=== PATIENT | female | born 1980 | race Caucasian/White ===

== ENCOUNTER → 2016-09-21 | Outpatient (CLI) | payer OTHER ==
[~2016-09-21] MED LIST: ACET500C PO; CALCTAB97 PO; CENTTAB47 PO; CYCL10TA PO; DRIS50002 PO; GABA-279 PO; IRON325T PO; LYRI75CA PO; MELO7.5T6 PO; METF1000 PO; MOBI15TA PO; NEUR300C PO; PERC5TAB6 PO; PREG50CA PO; PROT20TA11 PO; PROZ40CA PO; RISP1TAB OR; RISP2TAB12 OR; ROBA750T4 PO; SPIR25TA2 PO; TIZA2CAP3 PO; TOPA50TA7 PO; TRIL600T OR; VITA50003 PO; VITA500T53 PO
[2016-09-21 09:27] LABS: BASO % 0.4 % (0.0-1.0); EOS % 0.7 % (0.0-3.0); LYMPH # 2.1 K/mm3 (1.5-4.5); LYMPH % 29.8 % (24.0-44.0); MEAN CORPUSCULAR HEMOGLOBIN 32.3 pg (27.0-33.0); MEAN CORPUSCULAR VOLUME 97.8 fl (80.0-96.0); MONO # 0.4 K/mm3 (0.0-0.8); MONO % 6.1 % (0.0-5.0); NEUTROPHILS # 4.2 K/mm3 (1.8-7.7); NEUTROPHILS % 60.4 % (36.0-66.0); RED CELL DISTRIBUTION WIDTH 11.6 % (11.5-14.5); WHITE BLOOD COUNT 6.9 K/mm3 (4.0-10.0)
[2016-09-21 09:58] LABS: ALBUMIN 3.6 GM/DL (3.2-5.2); ALBUMIN/GLOBULIN RATIO 1.16 (1.00-1.93); ALKALINE PHOSPHATASE 105 U/L (45-117); ALT/SGPT 37 U/L (12-78); ANION GAP 7 MEQ/L (8-16); AST/SGOT 22 U/L (15-37); BILIRUBIN,TOTAL 0.5 MG/DL (0.2-1.0); BLOOD UREA NITROGEN 20 MG/DL (7-18); CALCIUM LEVEL 9.2 MG/DL (8.5-10.1); CARBON DIOXIDE LEVEL 32 MEQ/L (21-32); CHLORIDE LEVEL 106 MEQ/L (98-107); CREATININE FOR GFR 0.63 MG/DL (0.55-1.02); GLOMERULAR FILTRATION RATE > 60.0 (>60); GLUCOSE, FASTING 78 MG/DL (70-105); POTASSIUM SERUM 4.2 MEQ/L (3.5-5.1); SODIUM LEVEL 145 MEQ/L (136-145); TOTAL PROTEIN 6.7 GM/DL (6.4-8.2)
== END ==
LOC: M LAB 08:46
PROVIDERS: ATTEND Physician Assistant Medical
DX: M79.7 Fibromyalgia (principal)

== ENCOUNTER → 2016-10-22 | Outpatient (REF) | payer OTHER, MEDICAID | LOC: M LAB REF 11:52 | PROVIDERS: ATTEND Physician Assistant | DX: R30.9 Painful micturition, unspecified (principal) ==

== ENCOUNTER → 2016-12-14 | Outpatient (CLI) | payer OTHER ==
[2016-12-14 11:05] LABS: ANION GAP 6 MEQ/L (8-16); BLOOD UREA NITROGEN 14 MG/DL (7-18); CARBON DIOXIDE LEVEL 27 MEQ/L (21-32); CHLORIDE LEVEL 105 MEQ/L (98-107); CREATININE FOR GFR 0.67 MG/DL (0.55-1.02); GLOMERULAR FILTRATION RATE > 60.0 (>60); GLUCOSE, FASTING 106 MG/DL (70-105); SODIUM LEVEL 138 MEQ/L (136-145)
[2016-12-14 13:31] LABS: CONTROL LINE HCG INT CTR LINE PRESENT
== END ==
LOC: M LAB 10:22
PROVIDERS: ATTEND Physician Assistant Medical
DX: M79.7 Fibromyalgia (principal)

== ENCOUNTER → 2017-02-24 | Outpatient (REF) | LOC: M LAB 16:04 | PROVIDERS: ATTEND Nurse Practitioner Adult Health | DX: Z02.1 Encounter for pre-employment examination (principal) ==

== ENCOUNTER → 2017-03-22 | Outpatient (CLI) | payer OTHER ==
[~2017-03-22] MED LIST changes: -MELO7.5T6 PO; +MELO7.5T7 PO; -METF1000 PO; +METF10004 PO; +PERC5TAB12 PO; -PERC5TAB6 PO; -TOPA50TA7 PO; +TOPA50TA8 PO; +VITA1CAP40 PO; -VITA50003 PO
--- NOTE | 2017-03-22 23:32 | REP ---
Clinical: Pelvic pain . Technique: Transabdominal pelvic ultrasound followed by transvaginal examination for better evaluation of the endometrium and adnexa with color Doppler evaluation of the ovaries. Findings: Bladder is unremarkable and measures 3.3 x 3.7 x 1.0 cm . Heterogeneous enlarged anteverted uterus measures 10.2 x 5.5 x 6.7 cm. The endometrial complex measures 4.9 mm thickness. No discrete uterine or endometrial abnormalities are appreciated. Bilateral ovaries are normal in appearance and vascularity without evidence for torsion. Right ovary measures 3.9 x 3.0 x 2.6 cm ; R I = 0.48 . Left ovary measures 4.5 x 3.2 x 3.6 cm with 2.6 x 2.3 x 2.6 cm hemorrhagic cyst versus mass ; R I = 0.61 . No pelvic fluid or adnexal mass lesion . Impression: 1. enlarged heterogeneous anteverted uterus without discrete fibroid or abnormality. 2. 2.6 cm left ovarian hemorrhagic cyst versus mass. Consider follow-up examination in 4-6 weeks to evaluate for resolution. Signed by Angel Velasco MD 03/22/2017 11:24 P
== END ==
LOC: M RAD 17:08
PROVIDERS: ATTEND Physician Assistant Medical
DX: R93.5 Abnormal findings on diagnostic imaging of other abdominal regions, including retroperitoneum (principal)

== ENCOUNTER → 2017-07-25 | Outpatient (CLI) | payer OTHER ==
[2017-07-25 12:16] LABS: BASO % 0.4 % (0.0-1.0); EOS % 0.9 % (0.0-3.0); IMMATURE GRANULOCYTE % 0.4 % (0-0); LYMPH # 2.1 10^3/uL (1.5-4.5); LYMPH % 47.1 % (24.0-44.0); MEAN CORPUSCULAR HEMOGLOBIN 32.3 pg (27.0-33.0); MEAN CORPUSCULAR HGB CONC 33.3 g/dl (32.0-36.5); MEAN CORPUSCULAR VOLUME 96.8 fl (80.0-96.0); MONO # 0.3 10^3/uL (0.0-0.8); MONO % 7.1 % (0.0-5.0); NEUTROPHILS % 44.1 % (36.0-66.0); PLATELET COUNT, AUTOMATED 194 10^3/uL (150-450); RED CELL DISTRIBUTION WIDTH 11.4 % (11.5-14.5); WHITE BLOOD COUNT 4.5 10^3/uL (4.0-10.0)
[2017-07-25 12:54] LABS: ERYTHROCYTE SEDIMENTATION RATE 7 mm/hr (0-20)
[2017-07-25 13:00] LABS: ALBUMIN 3.6 GM/DL (3.2-5.2); ALBUMIN/GLOBULIN RATIO 1.09 (1.00-1.93); ALKALINE PHOSPHATASE 98 U/L (45-117); ALT/SGPT 20 U/L (12-78); ANION GAP 3 MEQ/L (8-16); AST/SGOT 13 U/L (7-37); BILIRUBIN,TOTAL 0.6 MG/DL (0.2-1.0); BLOOD UREA NITROGEN 11 MG/DL (7-18); CALCIUM LEVEL 8.8 MG/DL (8.5-10.1); CARBON DIOXIDE LEVEL 32 MEQ/L (21-32); CHLORIDE LEVEL 107 MEQ/L (98-107); CREATININE FOR GFR 0.54 MG/DL (0.55-1.02); GLOMERULAR FILTRATION RATE > 60.0 (>60); GLUCOSE, FASTING 74 MG/DL (70-105); POTASSIUM SERUM 4.3 MEQ/L (3.5-5.1); SODIUM LEVEL 142 MEQ/L (136-145); TOTAL PROTEIN 6.9 GM/DL (6.4-8.2)
[2017-07-26 11:03] LABS: ALBUMIN % 59.4 % (55.8-66.1)
[2017-07-26 11:04] LABS: GAMMA GLOBULIN % 16.5 % (11.1-18.8)
[2017-07-27 00:07] LABS: Lyme Disease IgG/IgM Antibodie <0.91 ISR (0.00-0.90); Lyme Disease IgM Ab Quantitati <0.80 index (0.00-0.79)
== END ==
LOC: M LAB 11:09
PROVIDERS: ATTEND Physician Assistant Medical
DX: M79.7 Fibromyalgia (principal)

== ENCOUNTER → 2017-07-25 | Outpatient (CLI) | payer OTHER ==
[2017-07-25 12:15] LABS: BASO % 0.5 % (0.0-1.0); EOS % 0.9 % (0.0-3.0); IMMATURE GRANULOCYTE % 0.2 % (0-0); LYMPH % 45.9 % (24.0-44.0); MEAN CORPUSCULAR HGB CONC 32.9 g/dl (32.0-36.5); MEAN CORPUSCULAR VOLUME 97.4 fl (80.0-96.0); MONO # 0.3 10^3/uL (0.0-0.8); MONO % 6.7 % (0.0-5.0); NEUTROPHILS % 45.8 % (36.0-66.0); PLATELET COUNT, AUTOMATED 204 10^3/uL (150-450); RED CELL DISTRIBUTION WIDTH 11.4 % (11.5-14.5); WHITE BLOOD COUNT 4.3 10^3/uL (4.0-10.0)
[2017-07-25 13:02] LABS: VITAMIN B12 LEVEL 279 PG/ML (247-911)
[2017-07-25 13:12] LABS: ALBUMIN 3.5 GM/DL (3.2-5.2); ALBUMIN/GLOBULIN RATIO 1.03 (1.00-1.93); ALKALINE PHOSPHATASE 96 U/L (45-117); ALT/SGPT 20 U/L (12-78); ANION GAP 4 MEQ/L (8-16); AST/SGOT 15 U/L (7-37); BILIRUBIN,TOTAL 0.4 MG/DL (0.2-1.0); BLOOD UREA NITROGEN 10 MG/DL (7-18); CALCIUM LEVEL 8.8 MG/DL (8.5-10.1); CARBON DIOXIDE LEVEL 31 MEQ/L (21-32); CHLORIDE LEVEL 106 MEQ/L (98-107); CREATININE FOR GFR 0.57 MG/DL (0.55-1.02); FERRITIN 97 NG/ML (8-252); GLOMERULAR FILTRATION RATE > 60.0 (>60); GLUCOSE, FASTING 73 MG/DL (70-105); PERCENT SATURATION 32.7 % (13.2-45.0); PHOSPHORUS LEVEL 3.5 MG/DL (2.5-4.9); POTASSIUM SERUM 4.4 MEQ/L (3.5-5.1); SODIUM LEVEL 141 MEQ/L (136-145); TOTAL IRON BINDING CAPACITY 266 UG/DL (250-450); TOTAL PROTEIN 6.9 GM/DL (6.4-8.2)
[2017-07-26 11:10] LABS: PRETREATED FOLATE FOR RBCFOL 10.2 NG/ML
== END ==
LOC: M LAB 11:06
PROVIDERS: ATTEND Surgery
DX: K91.2 Postsurgical malabsorption, not elsewhere classified (principal)

== ENCOUNTER → 2017-08-30 | Outpatient (CLI) | payer OTHER ==
--- NOTE | 2017-08-31 18:32 | REP ---
MRI lumbar spine without contrast: History: Low back pain. Bilateral lower extremity numbness. Comparison is made with prior MRI study of the lumbar spine from May 30, 2015. Technique: Sagittal and axial T1 and T2-weighted scans are acquired in the usual fashion with and without fat saturation. Sequences include spin echo, turbo spin-echo, and STIR imaging sequences. Findings: Lumbar vertebral body heights are preserved. Alignment is normal. Conus medullaris is normal in position and appearance at L1. There is a vestigial disc at the S1, S2 level as before. There is a 3.5 cm cystic area in the right ovary. No other extra vertebral abnormality is observed. There are degenerative disc changes L3-4, L4-5, and L5-S1. Axial and sagittal images at L1-L2 and L2-L3 show no abnormality and are unchanged. At L3-4, axial and sagittal images demonstrate a small to moderate left paracentral focal disc protrusion indenting the ventral margin of the thecal sac. This is a new finding. Canal size is borderline. No neural foraminal narrowing is seen. At L4-5, today's MR images demonstrate diffuse disc bulging slightly more prominent to the right than the left. This is improved when compared with the May 30, 2015 prior study. Canal size is mildly narrowed. There is facet and ligamentum flavum hypertrophy at this level which appears more prominent than on the prior study. No neural foraminal encroachment is seen. There is some facet joint associated extra spinal cyst formation at the level of the left L4-5 facet today. This cyst is larger than on the prior study. It currently measures 1.6 cm in greatest diameter. At L5-S1, there is a left paracentral disc protrusion with caudal extrusion indenting the ventral margin of the thecal sac slightly. The exiting S1 root sleeve is slightly compressed. There is facet and ligamentum flavum hypertrophy at L5-S1. These findings are unchanged. There is mild left-sided neural foraminal narrowing at L5-S1 unchanged. Impression: Degenerative spondylosis changes L3-4 through L5-S1. New left paracentral disc protrusion at L3-4. Previously noted L4-5 disc protrusion is less prominent however there is more ligamentum flavum hypertrophy and facet hypertrophy at 4-5 today producing mild central canal stenosis. There is osteoarthritic facet associated cyst formation in the dorsal extra vertebral soft tissues at this level. A central disc protrusion at L5-S1 is seen to the left of midline unchanged. Signed by Ryan Montelongo MD 09/01/2017 08:03 A
== END ==
LOC: M RAD 15:55
PROVIDERS: ATTEND Physician Assistant Medical
DX: M51.36 Other intervertebral disc degeneration, lumbar region (principal); M51.37 Other intervertebral disc degeneration, lumbosacral region; M51.27 Other intervertebral disc displacement, lumbosacral region

== ENCOUNTER 2017-11-02 07:34 | Emergency (ER) | payer OTHER, MEDICAID | END 2017-11-02 08:34 | disposition home or self-care (01) | LOC: M ED 07:34 | DX: N93.9 Abnormal uterine and vaginal bleeding, unspecified (principal); F41.9 Anxiety disorder, unspecified; F33.9 Major depressive disorder, recurrent, unspecified; F17.210 Nicotine dependence, cigarettes, uncomplicated; Z79.899 Other long term (current) drug therapy; Z88.8 Allergy status to other drugs, medicaments and biological substances; Z87.442 Personal history of urinary calculi; Z87.440 Personal history of urinary (tract) infections; Z98.0 Intestinal bypass and anastomosis status; Z98.890 Other specified postprocedural states | CPT/HCPCS: 81025 ==

== ENCOUNTER → 2018-01-03 | Outpatient (CLI) | payer OTHER ==
[2018-01-03 13:54] LABS: HEMATOCRIT 39.9 % (36.0-47.0); HEMOGLOBIN 13.2 g/dl (12.0-15.5); MEAN CORPUSCULAR HEMOGLOBIN 32.2 pg (27.0-33.0); MEAN CORPUSCULAR HGB CONC 33.1 g/dl (32.0-36.5); MEAN CORPUSCULAR VOLUME 97.3 fl (80.0-96.0); PLATELET COUNT, AUTOMATED 212 10^3/uL (150-450); RED CELL DISTRIBUTION WIDTH 11.9 % (11.5-14.5); WHITE BLOOD COUNT 6.8 10^3/uL (4.0-10.0)
[2018-01-03 13:59] LABS: APPEARANCE, URINE CLEAR (CLEAR); BACTERIA, URINE AUTO 1+ (NEGATIVE); BILIRUBIN, URINE AUTO NEGATIVE (NEGATIVE); BLOOD, URINE BLOOD NEGATIVE (NEGATIVE); COLOR, URINE YELLOW (YELLOW); GLUCOSE, URINE (UA) AUTO NEGATIVE (NEGATIVE); KETONE, URINE AUTO NEGATIVE (NEGATIVE); LEUKOCYTE ESTERASE, URINE AUTO NEGATIVE (NEGATIVE); MUCUS, URINE SMALL (NEGATIVE); NITRITE, URINE AUTO NEGATIVE (NEGATIVE); PROTEIN, URINE AUTO NEGATIVE (NEGATIVE); RBC, URINE AUTO 1 /HPF (0-3); SPECIFIC GRAVITY URINE AUTO 1.023 (1.002-1.035); SQUAMOUS EPITHELIAL CELL UR AU 1 /HPF (0-6); WBC, URINE AUTO 2 /HPF (0-3)
[2018-01-03 14:06] LABS: INR 1.04; PROTHROMBIN TIME 13.8 SECONDS (12.4-14.5)
[2018-01-03 14:07] LABS: PARTIAL THROMBOPLASTIN TIME 28.5 SECONDS (26.8-37.9)
[2018-01-03 14:56] LABS: CONTROL LINE HCG INT CTR LINE PRESENT; HCG, SERUM QUALITATIVE NEGATIVE (NEGATIVE)
[2018-01-03 15:14] LABS: ANION GAP 2 MEQ/L (8-16); BLOOD UREA NITROGEN 13 MG/DL (7-18); CALCIUM LEVEL 9.2 MG/DL (8.5-10.1); CARBON DIOXIDE LEVEL 31 MEQ/L (21-32); CHLORIDE LEVEL 108 MEQ/L (98-107); CREATININE FOR GFR 0.84 MG/DL (0.55-1.30); GLOMERULAR FILTRATION RATE > 60.0 (>60); GLUCOSE, FASTING 83 MG/DL (70-100); POTASSIUM SERUM 4.5 MEQ/L (3.5-5.1); SODIUM LEVEL 141 MEQ/L (136-145)
== END ==
LOC: M LAB 13:33
DX: N20.0 Calculus of kidney (principal)
CPT/HCPCS: 84703

== ENCOUNTER 2018-01-06 10:23 | Day surgery (SDC) | payer OTHER ==
[2018-01-06] MEDS ORDERED: LR 1,000 ML IV ×4 (10:30→13:15)
[2018-01-06 11:09] LABS: URINE PREG TEST NEGATIVE (NEGATIVE)
[2018-01-06 11:10] LABS: CONTROL LINE UCG INT CTR LINE PRESENT
[2018-01-06] MEDS ORDERED: PROPOFOL 200 MG/20 ML VIAL As Ordered ×2 (11:39)
[2018-01-06] MEDS ORDERED: dexameTHASONE 4 MG/ML 1ML VIAL (J1100) As Ordered ×2 (11:39)
[2018-01-06] MEDS ORDERED: fentaNYL 100 MCG/2 ML INJECTION (J3010) As Ordered ×2 (11:39)
[2018-01-06] MEDS ORDERED: LIDOCAINE 2% INJ 100 MG/5 ML SDV (FOR ANES.) As Ordered ×2 (11:39)
[2018-01-06] MEDS ORDERED: MIDAZOLAM INJ 2 MG/2 ML VIAL (J2250) As Ordered ×2 (11:39)
[2018-01-06] MEDS ORDERED: ONDANSETRON 4MG/2ML VIAL (J2405) As Ordered ×2 (11:39)
[2018-01-06] MEDS ORDERED: ePHEDrine SULFATE 25 MG/5 ML(5MG/ML) SYRINGE As Ordered ×2 (12:05)
[2018-01-06] MEDS: CONRAY-60 60% 50ML VIAL (Q9961) As Ordered ×2 (12:10)
[2018-01-06] MEDS ORDERED: PERCOCET 5MG/325MG TAB As Ordered ×2 (13:05)
[2018-01-06] MEDS: PERCOCET 5MG/325MG TAB PO ×4 (13:05→13:34)
[2018-01-06] MEDS ORDERED: fentaNYL 100 MCG/2 ML INJECTION (J3010) IV ×2 (13:15)
[2018-01-06] MEDS ORDERED: ONDANSETRON 4MG/2ML VIAL (J2405) IV ×2 (13:15)
[2018-01-06] MEDS ORDERED: NORCO, ANEXSIA 5/325MG TABLET (HYDROcodone/ACETAMINOPHEN) PO ×4 (13:15)
[2018-01-06] MEDS: oxyBUTYnin 5 MG TAB PO ×2 (13:34)
== END 2018-01-06 14:55 | disposition home or self-care (01) ==
LOC: M SDC 10:23
DX: N20.0 Calculus of kidney (principal); G47.30 Sleep apnea, unspecified; K21.9 Gastro-esophageal reflux disease without esophagitis; F32.9 Major depressive disorder, single episode, unspecified; F41.9 Anxiety disorder, unspecified; M79.7 Fibromyalgia; Z79.899 Other long term (current) drug therapy; Z98.84 Bariatric surgery status; F17.210 Nicotine dependence, cigarettes, uncomplicated
CPT/HCPCS: 52356

== ENCOUNTER 2018-01-06 19:34 | Emergency (ER) | payer OTHER ==
[2018-01-06] MEDS: ONDANSETRON 4MG/2ML VIAL (J2405) IV (22:25)
[2018-01-06] MEDS: MORPHINE 4 MG/ML 1ML VIAL/SYRINGE (J2270) IV (22:25)
[2018-01-06 22:33] LABS: BASO % 0.3 % (0.0-1.0); EOS % 0.1 % (0.0-3.0); HEMATOCRIT 40.6 % (36.0-47.0); HEMOGLOBIN 13.5 g/dl (12.0-15.5); IMMATURE GRANULOCYTE % 0.3 % (0-3.0); LYMPH # 1.4 10^3/uL (1.5-4.5); LYMPH % 16.3 % (24.0-44.0); MEAN CORPUSCULAR HEMOGLOBIN 31.8 pg (27.0-33.0); MEAN CORPUSCULAR HGB CONC 33.3 g/dl (32.0-36.5); MEAN CORPUSCULAR VOLUME 95.8 fl (80.0-96.0); MONO # 0.3 10^3/uL (0.0-0.8); MONO % 3.5 % (0.0-5.0); NEUTROPHILS # 6.8 10^3/uL (1.8-7.7); NEUTROPHILS % 79.5 % (36.0-66.0); PLATELET COUNT, AUTOMATED 218 10^3/uL (150-450); RED BLOOD COUNT 4.24 10^6/uL (4.00-5.40); RED CELL DISTRIBUTION WIDTH 11.7 % (11.5-14.5); WHITE BLOOD COUNT 8.6 10^3/uL (4.0-10.0)
[2018-01-06 22:49] LABS: APPEARANCE, URINE HAZY (CLEAR); BACTERIA, URINE AUTO NEGATIVE (NEGATIVE); BILIRUBIN, URINE AUTO NEGATIVE (NEGATIVE); BLOOD, URINE BLOOD 3+ (NEGATIVE); COLOR, URINE YELLOW (YELLOW); GLUCOSE, URINE (UA) AUTO NEGATIVE (NEGATIVE); KETONE, URINE AUTO TRACE mg/dL (NEGATIVE); LEUKOCYTE ESTERASE, URINE AUTO 3+ (NEGATIVE); MUCUS, URINE SMALL (NEGATIVE); NITRITE, URINE AUTO NEGATIVE (NEGATIVE); PROTEIN, URINE AUTO 2+ mg/dL (NEGATIVE); RBC, URINE AUTO TNTC /HPF (0-3); SPECIFIC GRAVITY URINE AUTO 1.024 (1.002-1.035); SQUAMOUS EPITHELIAL CELL UR AU 2 /HPF (0-6); UROBILINOGEN, URINE AUTO 0.2 mg/dL (0.0-2.0); WBC, URINE AUTO 41 /HPF (0-3)
[2018-01-06 23:02] LABS: ALBUMIN/GLOBULIN RATIO 1.05 (1.00-1.93); ALKALINE PHOSPHATASE 115 U/L (45-117); ALT/SGPT 44 U/L (12-78); ANION GAP 7 MEQ/L (8-16); AST/SGOT 48 U/L (7-37); BILIRUBIN,DIRECT 0.1 MG/DL (0.0-0.2); BILIRUBIN,TOTAL 0.4 MG/DL (0.2-1.0); BLOOD UREA NITROGEN 14 MG/DL (7-18); CALCIUM LEVEL 9.3 MG/DL (8.5-10.1); CARBON DIOXIDE LEVEL 22 MEQ/L (21-32); CHLORIDE LEVEL 110 MEQ/L (98-107); CREATININE FOR GFR 0.82 MG/DL (0.55-1.30); GLOMERULAR FILTRATION RATE > 60.0 (>60); GLUCOSE, FASTING 119 MG/DL (70-100); POTASSIUM SERUM 4.4 MEQ/L (3.5-5.1); SODIUM LEVEL 139 MEQ/L (136-145); TOTAL PROTEIN 7.8 GM/DL (6.4-8.2)
[2018-01-06] MEDS: CIPROFLOXACIN 500 MG TAB PO (23:30)
[2018-01-06] MEDS: PHENAZOPYRIDINE 100 MG TAB PO (23:30)
== END 2018-01-06 23:37 | disposition home or self-care (01) ==
LOC: M ED 19:34
DX: N30.90 Cystitis, unspecified without hematuria (principal); G89.18 Other acute postprocedural pain; M79.7 Fibromyalgia; Z87.442 Personal history of urinary calculi; Z98.84 Bariatric surgery status; Z79.899 Other long term (current) drug therapy; Z88.8 Allergy status to other drugs, medicaments and biological substances; F17.210 Nicotine dependence, cigarettes, uncomplicated
CPT/HCPCS: J2270

== ENCOUNTER → 2018-01-24 | Outpatient (REF) | payer OTHER, MEDICAID ==
[2018-01-24 19:18] LABS: APPEARANCE, URINE CLEAR (CLEAR); BACTERIA, URINE AUTO NEGATIVE (NEGATIVE); BILIRUBIN, URINE AUTO NEGATIVE (NEGATIVE); BLOOD, URINE BLOOD NEGATIVE (NEGATIVE); COLOR, URINE YELLOW (YELLOW); GLUCOSE, URINE (UA) AUTO NEGATIVE (NEGATIVE); KETONE, URINE AUTO NEGATIVE (NEGATIVE); LEUKOCYTE ESTERASE, URINE AUTO NEGATIVE (NEGATIVE); MUCUS, URINE SMALL (NEGATIVE); NITRITE, URINE AUTO NEGATIVE (NEGATIVE); PROTEIN, URINE AUTO NEGATIVE (NEGATIVE); RBC, URINE AUTO 0 /HPF (0-3); SPECIFIC GRAVITY URINE AUTO 1.023 (1.002-1.035); SQUAMOUS EPITHELIAL CELL UR AU 0 /HPF (0-6); WBC, URINE AUTO 1 /HPF (0-3)
== END ==
LOC: M SMT 17:08
DX: R30.0 Dysuria (principal)
CPT/HCPCS: 81001

== ENCOUNTER → 2018-06-06 | Outpatient (CLI) | payer OTHER, MEDICAID ==
[2018-06-06 23:42] LABS: CHLAMYDIA DNA AMPLIFICATION NEGATIVE (NEGATIVE); GC DNA AMPLIFICATION NEGATIVE (NEGATIVE)
[2018-06-07 10:30] LABS: HEPATITIS A ANTIBODY IGM NEGATIVE (NEGATIVE); HEPATITIS B CORE ANTIBODY IGM NEGATIVE (NEGATIVE); HEPATITIS B SURFACE ANTIGEN NEGATIVE (NEGATIVE); HIV 1&2 SCREEN CENTAUR NEGATIVE (NEGATIVE)
[2018-06-07 10:30] LABS: HEPATITIS C VIRUS ABY INDEX 0.2 INDEX (<0.8)
== END ==
LOC: M SMT 15:24
DX: Z11.3 Encounter for screening for infections with a predominantly sexual mode of transmission (principal)
CPT/HCPCS: 87340

== ENCOUNTER → 2018-08-31 | Outpatient (REF) | payer OTHER, MEDICAID ==
[~2018-08-31] MED LIST changes: +BUSP30TA PO; +CIPR-249 PO; -DRIS50002 PO; +DRIS50003 PO; +GABA-1171 PO; -GABA-279 PO; +HYDR-3713 PO; +OXYB5TAB10 PO; +PYRI1TAB5 PO; +SPIR-10 PO; -SPIR25TA2 PO; +TIZA2CAP PO; -TIZA2CAP3 PO; -VITA1CAP40 PO; +VITA50005 PO
[2018-08-31 17:09] LABS: BASO % 0.4 % (0.0-1.0); EOS # 0.3 10^3/uL (0.0-0.50); EOS % 3.1 % (0.0-3.0); HEMATOCRIT 38.9 % (36.0-47.0); HEMOGLOBIN 12.7 g/dl (12.0-15.5); LYMPH # 2.3 10^3/uL (1.5-4.5); LYMPH % 26.7 % (24.0-44.0); MEAN CORPUSCULAR HEMOGLOBIN 31.7 pg (27.0-33.0); MEAN CORPUSCULAR HGB CONC 32.6 g/dl (32.0-36.5); MONO # 0.5 10^3/uL (0.0-0.8); MONO % 5.9 % (0.0-5.0); NEUTROPHILS # 5.4 10^3/uL (1.8-7.7); NEUTROPHILS % 63.5 % (36.0-66.0); PLATELET COUNT, AUTOMATED 219 10^3/uL (150-450); RED BLOOD COUNT 4.01 10^6/uL (4.00-5.40); WHITE BLOOD COUNT 8.4 10^3/uL (4.0-10.0)
[2018-08-31 17:20] LABS: ALBUMIN 3.5 GM/DL (3.2-5.2); ALT/SGPT 19 U/L (12-78); BILIRUBIN,TOTAL 0.2 MG/DL (0.2-1.0); BLOOD UREA NITROGEN 10 MG/DL (7-18); CALCIUM LEVEL 8.4 MG/DL (8.5-10.1); CARBON DIOXIDE LEVEL 27 MEQ/L (21-32); CHLORIDE LEVEL 107 MEQ/L (98-107); FOLATE 14.4 NG/ML; GLOMERULAR FILTRATION RATE > 60.0 (>60); GLUCOSE, FASTING 75 MG/DL (70-100); IRON (FE) 56 UG/DL (50-170); POTASSIUM SERUM 4.3 MEQ/L (3.5-5.1); SODIUM LEVEL 140 MEQ/L (136-145); TOTAL 25(OH) VITAMIN D 26.2 NG/ML (30.0-100.0); TOTAL PROTEIN 6.8 GM/DL (6.4-8.2); VITAMIN B12 LEVEL 1005 PG/ML
[2018-08-31 17:24] LABS: HEMOGLOBIN A1c 5.4 %
== END ==
LOC: M LAB REF 16:24
PROVIDERS: ATTEND Nurse Practitioner Adult Health
DX: Z98.84 Bariatric surgery status (principal)

== ENCOUNTER → 2018-12-13 | Outpatient (CLI) | payer OTHER, MEDICAID ==
[~2018-12-13] MED LIST changes: +VITA500T17 PO; -VITA500T53 PO
[2018-12-13 13:30] LABS: HCG, SERUM QUALITATIVE NEGATIVE (NEGATIVE)
== END ==
LOC: M LAB 12:08
PROVIDERS: ATTEND Advanced Practice Midwife
DX: N92.6 Irregular menstruation, unspecified (principal)

== ENCOUNTER → 2019-01-09 | Outpatient (REF) | payer OTHER, MEDICAID | LOC: M LAB REF 13:21 | PROVIDERS: ATTEND Obstetrics & Gynecology | DX: R87.610 Atypical squamous cells of undetermined significance on cytologic smear of cervix (ASC-US) (principal); R87.810 Cervical high risk human papillomavirus (HPV) DNA test positive ==

== ENCOUNTER → 2019-02-01 | Outpatient (CLI) | payer OTHER ==
--- NOTE | 2019-02-07 07:19 | SLEEPHOME ---
DATE OF STUDY: 02/01/2019 ORDERED BY: CHRISTIE Ware Diagnostic home sleep testing was performed due to concern for the obstructive sleep apnea syndrome. 9 hours and 59 minutes of data were reviewed. There were 6 hours and 54 minutes marked time as time in bed. During the interval marked time in bed, there were 61 respiratory events identified of 10 seconds in duration or greater for a respiratory event index of 8.8. The events were primarily obstructive. Baseline pulse rate 58, pulse rate ranged 34-169. Baseline saturation 91% and saturations fell to 83%. Testing was performed in both the supine and nonsupine positions. IMPRESSION: Abnormal home sleep testing with repetitive respiratory events and oxygen desaturations to 83% with a respiratory event index of 8.8 is consistent with the obstructive sleep apnea syndrome. RECOMMENDATION: The patient should be encouraged to undergo formal sleep evaluation and in-laboratory pressure titration.
== END ==
LOC: M SLEEP HO 11:10
PROVIDERS: ATTEND Nurse Practitioner Family
DX: G47.33 Obstructive sleep apnea (adult) (pediatric) (principal)

== ENCOUNTER → 2019-07-24 | Outpatient (REF) | payer OTHER, MEDICAID ==
[2019-07-24 16:38] LABS: APPEARANCE, URINE HAZY (CLEAR); BACTERIA, URINE AUTO NEGATIVE (NEGATIVE); BILIRUBIN, URINE AUTO NEGATIVE (NEGATIVE); BLOOD, URINE BLOOD NEGATIVE (NEGATIVE); COLOR, URINE YELLOW (YELLOW); GLUCOSE, URINE (UA) AUTO NEGATIVE (NEGATIVE); KETONE, URINE AUTO NEGATIVE (NEGATIVE); LEUKOCYTE ESTERASE, URINE AUTO TRACE (NEGATIVE); NITRITE, URINE AUTO NEGATIVE (NEGATIVE); PROTEIN, URINE AUTO NEGATIVE (NEGATIVE); RBC, URINE AUTO 0 /HPF (0-3); SPECIFIC GRAVITY URINE AUTO 1.021 (1.002-1.035); SQUAMOUS EPITHELIAL CELL UR AU 2 /HPF (0-6); WBC, URINE AUTO 4 /HPF (0-3)
== END ==
LOC: M LAB REF 16:11
PROVIDERS: ATTEND Nurse Practitioner Adult Health
DX: N20.0 Calculus of kidney (principal)

== ENCOUNTER → 2019-07-25 | Outpatient (CLI) | payer OTHER ==
--- NOTE | 2019-07-26 06:21 | REP ---
Clinical: Kidney stone. Technique: Axial noncontrast images from the lung bases to the pubic symphysis with coronal and sagittal re-formations. Comparison: 12/28/2017. Findings: Lung bases are clear. Visualized heart and pericardium normal. Evidence of prior gastric bypass surgery and cholecystectomy. Liver, spleen, pancreas, bilateral adrenal glands and kidneys are essentially normal for noncontrast evaluation. A small forming a 1 mm nonobstructing left renal calculus (image 55) cannot be excluded. The enteric system is without obstruction or acute inflammatory process. Pelvis demonstrates normal bladder and age-appropriate uterus/adnexa with IUD identified in satisfactory position. Multiple phleboliths noted in the pelvis. No ascites. No free air. No adenopathy. Abdominal aorta without aneurysm. Musculoskeletal structures are intact. Impression: 1. Possible 1 mm nonobstructing left intrarenal calculus. Otherwise normal appearance to the urinary tract system. 2. Evidence of prior cholecystectomy and gastric bypass surgery. 3. No further acute abdominopelvic pathology appreciated. Electronically Signed by Angel Velasco MD 07/26/2019 06:13 A
== END ==
LOC: M RAD 08:53
PROVIDERS: ATTEND Nurse Practitioner Adult Health
DX: N20.0 Calculus of kidney (principal); Z98.84 Bariatric surgery status

== ENCOUNTER → 2019-08-29 | Outpatient (REF) | payer OTHER, MEDICAID ==
[2019-08-31 08:29] LABS: MUMPS VIRUS IgG ANTIBODY <9.0 AU/mL (Immune >10.9); RUBEOLA IgG ANTIBODY >300.0 AU/mL (Immune >16.4)
== END ==
LOC: M LAB REF 18:25
PROVIDERS: ATTEND Nurse Practitioner Adult Health
DX: Z01.84 Encounter for antibody response examination (principal)

== ENCOUNTER 2019-10-24 11:03 | Emergency (ER) | payer MEDICAID, OTHER ==
[~2019-10-24] VITALS: Ht 160 cm; Wt 94.1 kg
[2019-10-24 11:03] VITALS: BP 121/71
[2019-10-24] MEDS ORDERED: VENL150C43 PO (11:13)
[2019-10-24] MEDS ORDERED: PREG75CA2 PO (11:13)
[2019-10-24] MEDS ORDERED: LORA-674 PO (11:13)
[2019-10-24] MEDS ORDERED: VITA50005 PO (11:13)
== END 2019-10-24 12:21 | disposition left against medical advice (07) ==
LOC: M ED 11:03
DX: Z53.21 Procedure and treatment not carried out due to patient leaving prior to being seen by health care provider (principal)

== ENCOUNTER 2020-04-07 14:50 | Emergency (ER) | payer OTHER ==
[~2020-04-07 14:50] MED LIST changes: +CYCL-707 PO; -CYCL10TA PO; +LORA-674 PO; +PREG75CA2 PO; +VENL150C43 PO
== END 2020-04-07 16:47 | disposition home or self-care (01) ==
LOC: M ED 14:50
DX: M77.31 Calcaneal spur, right foot (principal); F17.210 Nicotine dependence, cigarettes, uncomplicated

== ENCOUNTER → 2020-10-02 | Outpatient (REF) | payer OTHER ==
[2020-10-02 13:02] LABS: APPEARANCE, URINE CLEAR (CLEAR); BACTERIA, URINE AUTO NEGATIVE (NEGATIVE); BILIRUBIN, URINE AUTO NEGATIVE (NEGATIVE); BLOOD, URINE BLOOD NEGATIVE (NEGATIVE); COLOR, URINE YELLOW (YELLOW); GLUCOSE, URINE (UA) AUTO NEGATIVE (NEGATIVE); KETONE, URINE AUTO NEGATIVE (NEGATIVE); LEUKOCYTE ESTERASE, URINE AUTO NEGATIVE (NEGATIVE); MUCUS, URINE SMALL (NEGATIVE); NITRITE, URINE AUTO NEGATIVE (NEGATIVE); PROTEIN, URINE AUTO NEGATIVE (NEGATIVE); RBC, URINE AUTO 0 /HPF (0-3); SPECIFIC GRAVITY URINE AUTO 1.016 (1.002-1.035); SQUAMOUS EPITHELIAL CELL UR AU 0 /HPF (0-6); UROBILINOGEN, URINE AUTO 0.2 mg/dL (0.0-2.0); WBC, URINE AUTO 0 /HPF (0-3)
[2020-10-02 15:18] LABS: CHLAMYDIA DNA AMPLIFICATION NEGATIVE (NEGATIVE); GC DNA AMPLIFICATION NEGATIVE (NEGATIVE)
== END ==
LOC: M LAB REF 11:36
PROVIDERS: ATTEND Nurse Practitioner Family
DX: R30.9 Painful micturition, unspecified (principal); Z11.3 Encounter for screening for infections with a predominantly sexual mode of transmission

== ENCOUNTER → 2020-12-19 | Outpatient (CLI) | payer OTHER ==
--- NOTE | 2020-12-19 15:03 | REP ---
INDICATION: LT KNEE PAIN ? LOOSE BODY. COMPARISON: 05/07/2020. TECHNIQUE: Multiple sequences obtained in the axial, coronal and sagittal planes. FINDINGS: Menisci: Intact, no tear. Cruciate ligaments: Intact. Collateral ligaments: Intact. Extensor mechanism/patellar retinacula: Intact. Cartilage: Moderate diffuse chondromalacia is present in the medial compartment with mild global chondromalacia in the lateral joint compartment as well as patellofemoral joint.. Bone marrow: Moderate subchondral marrow edema in the posterior medial femoral condyle. Joint fluid: There is a moderate joint effusion. There is no definite joint body identified. There is a suprapatellar plica. Popliteal region: No cyst. There is mild diffuse spurring. IMPRESSION: No evidence of internal derangement. Arthritic changes and chondromalacia as discussed above. Subchondral marrow edema posterior medial femoral condyle. Moderate joint effusion. Suprapatellar plica. <Electronically signed by Nathan Chavez > 12/19/20 [id number]
== END | disposition home or self-care (01) ==
LOC: M PLARAD 12:49
PROVIDERS: ATTEND Orthopaedic Surgery
DX: M25.462 Effusion, left knee (principal); M67.52 Plica syndrome, left knee

== ENCOUNTER 2024-01-20 09:11 | Emergency (ER) | payer OTHER ==
[~2024-01-20] VITALS: Ht 160 cm; Wt 83.5 kg
[~2024-01-20 09:11] MED LIST changes: +ERGO500029 PO; +LORA-1041 PO; -LORA-674 PO; -OXYB5TAB10 PO; +OXYB5TAB14 PO; -PREG75CA2 PO; +PREG75CA3 PO
[2024-01-20] MEDS: KETOROLAC 60MG 2ML VIAL IM ONE (11:08)
[2024-01-20 11:55] VITALS: BP 112/62; TEMP 98.2; O2SAT 99
== END 2024-01-20 11:57 | disposition home or self-care (01) ==
LOC: M ED 09:11
DX: M23.91 Unspecified internal derangement of right knee (principal); M79.7 Fibromyalgia; G47.33 Obstructive sleep apnea (adult) (pediatric); F17.210 Nicotine dependence, cigarettes, uncomplicated; Z88.8 Allergy status to other drugs, medicaments and biological substances; Z79.899 Other long term (current) drug therapy
CPT/HCPCS: 73564; 93971; 96372; 99284; J1885

== ENCOUNTER → 2024-02-08 | Outpatient (CLI) | payer OTHER | LOC: M RAD 07:09 | PROVIDERS: ATTEND Physician Assistant | DX: M25.561 Pain in right knee (principal); M23.91 Unspecified internal derangement of right knee ==

== ENCOUNTER → 2024-04-05 | Outpatient (CLI) | payer OTHER | LOC: M SOG 09:37 | PROVIDERS: ATTEND Physician Assistant | DX: M25.561 Pain in right knee (principal) ==

== ENCOUNTER 2024-07-10 10:00 | Outpatient (RCR) | payer OTHER | END 2024-07-12 | LOC: M PT 10:00 | PROVIDERS: ATTEND Physician Assistant | DX: M25.561 Pain in right knee (principal); M23.91 Unspecified internal derangement of right knee ==

== ENCOUNTER 2024-08-02 08:24 | Outpatient (RCR) | payer OTHER | END 2024-08-11 | LOC: M PT 08:24 | PROVIDERS: ATTEND Physician Assistant | DX: M25.561 Pain in right knee (principal); M23.91 Unspecified internal derangement of right knee ==

== ENCOUNTER 2024-08-29 08:21 | Outpatient (RCR) | payer OTHER | END 2024-09-11 | LOC: M PT 08:21 | PROVIDERS: ATTEND Physician Assistant | DX: M25.561 Pain in right knee (principal); M23.91 Unspecified internal derangement of right knee ==

== ENCOUNTER → 2024-10-09 | Outpatient (REF) | payer OTHER ==
[2024-10-10 14:35] LABS: BASO % 0.4 % (0.0-1.0); EOS # 0.1 10^3/uL (0.0-0.5); EOS % 0.7 % (0.0-3.0); HEMATOCRIT 35.3 % (36.0-47.0); LYMPH # 3.2 10^3/uL (1.5-5.0); LYMPH % 34.2 % (24.0-44.0); MEAN CORPUSCULAR HEMOGLOBIN 28.1 pg (27.0-33.0); MEAN CORPUSCULAR HGB CONC 31.2 g/dl (32.0-36.5); MEAN CORPUSCULAR VOLUME 90.3 fl (80.0-96.0); MONO # 0.7 10^3/uL (0.0-0.8); MONO % 7.2 % (2.0-8.0); NEUTROPHILS # 5.4 10^3/uL (1.5-8.5); NEUTROPHILS % 57.3 % (36.0-66.0); PLATELET COUNT, AUTOMATED 288 10^3/uL (150-450); RED BLOOD COUNT 3.91 10^6/uL (4.00-5.40); WHITE BLOOD COUNT 9.4 10^3/uL (4.0-10.0)
[2024-10-10 15:07] LABS: PERCENT SATURATION 6.7 % (13.2-45.0)
[2024-10-10 15:08] LABS: THYROID STIMULATING HORMONE 5.535 uIU/ML (0.55-4.78)
[2024-10-10 15:09] LABS: FOLATE 17.5 NG/ML (>5.4); TOTAL 25(OH) VITAMIN D 13.9 NG/ML (20.0-100.0)
[2024-10-10 15:48] LABS: HEMOGLOBIN A1c 5.4 % (4.0-6.0)
== END ==
LOC: M LAB REF 13:09
PROVIDERS: ATTEND Pediatrics
DX: E66.9 Obesity, unspecified (principal); Z68.33 Body mass index [BMI] 33.0-33.9, adult; K91.2 Postsurgical malabsorption, not elsewhere classified

== ENCOUNTER → 2025-05-10 | Outpatient (REF) | payer OTHER ==
[~2025-05-10] MED LIST changes: -PREG50CA PO; +PREG50CA87 PO; -VITA500T17 PO; +VITA500T8 PO
[2025-05-10 16:41] LABS: PLATELET COUNT, AUTOMATED 303 10^3/uL (150-450)
[2025-05-10 17:59] LABS: IRON (FE) 66 UG/DL (50-170); PERCENT SATURATION 16.2 % (13.2-45.0)
[2025-05-10 18:00] LABS: FREE T4 1.00 NG/DL (0.89-1.76)
[2025-05-10 18:02] LABS: TOTAL 25(OH) VITAMIN D 13.4 NG/ML (20.0-100.0); VITAMIN B12 LEVEL 283 PG/ML (211-911)
[2025-05-10 18:05] LABS: THYROID PEROXIDASE ANTIBODY > 1300.0 U/ML (<60.0)
== END ==
LOC: M LAB REF 16:15
PROVIDERS: ATTEND Pediatrics
DX: R79.89 Other specified abnormal findings of blood chemistry (principal); D50.9 Iron deficiency anemia, unspecified; K91.2 Postsurgical malabsorption, not elsewhere classified; E55.9 Vitamin D deficiency, unspecified